=== PATIENT | female | born 1990 | race Caucasian/White ===

== ENCOUNTER → 2018-02-06 | Outpatient (REF) | payer BC, SELFPAY | LOC: LAB 11:19 | PROVIDERS: Family Provider Specialist | DX: Z13.1 Encounter for screening for diabetes mellitus (principal); Z13.220 Encounter for screening for lipoid disorders; Z71.89 Other specified counseling | CPT/HCPCS: 80061; 82947 ==

== ENCOUNTER → 2018-08-21 09:11 | Outpatient (REF) | payer BC, SELFPAY ==
[2018-08-21 09:36] LABS: Cholesterol 233 mg/dL (140-199); Glucose Promotional 95 mg/dL (70-100); HDL Cholesterol 96 mg/dL (40-60); LDL Cholesterol Calculated 103 mg/dL (<100); Triglycerides 171 mg/dL (35-150)
== END ==
LOC: LAB 09:11
PROVIDERS: Family Provider Specialist
DX: Z13.1 Encounter for screening for diabetes mellitus (principal); Z13.220 Encounter for screening for lipoid disorders
CPT/HCPCS: 80061; 82947

== ENCOUNTER → 2018-11-13 12:15 | Outpatient (REF) | payer BC, SELFPAY ==
[2018-11-13 13:27] LABS: Cholesterol 262 mg/dL (140-199); Glucose Promotional 96 mg/dL (70-100); Triglycerides 146 mg/dL (35-150)
[2018-11-13 13:38] LABS: HDL Cholesterol 118 mg/dL (40-60); LDL Cholesterol Calculated 115 mg/dL (<100)
== END ==
LOC: LAB 12:15
PROVIDERS: Family Provider Specialist
DX: Z13.1 Encounter for screening for diabetes mellitus (principal); Z13.220 Encounter for screening for lipoid disorders
CPT/HCPCS: 80061; 82947

== ENCOUNTER → 2019-10-29 17:16 | Outpatient (CLI) | payer BC, SELFPAY ==
[2019-10-29 18:03] LABS: Add Manual Diff / Slide Review NO; Basophils Absolute Auto 0 /uL (0-100); Basophils Percent Auto 0.5 % (0-2); Eosinophils Absolute Auto 100 /uL (0-450); Hematocrit 39.2 % (36-46); Hemoglobin 13.1 g/dL (12.0-16.0); Lymphocytes Absolute Auto 3300 /uL (1100-4500); Lymphocytes Percent Auto 33.1 % (25-40); Mean Corpuscular HGB Conc 33.5 % (30-36); Mean Corpuscular Hemoglobin 31.6 PG (26-34); Mean Corpuscular Volume 94.4 fL (80-100); Monocytes Absolute Auto 600 /uL (0-900); Monocytes Percent Auto 6.3 % (3-14); Neutrophils Absolute Auto 5800 /uL (1500-7000); Neutrophils Percent Auto 59.1 % (50-75); Platelet Count 286 X10^3/uL (150-400); Red Blood Cell Count 4.15 X10^6/uL (4.0-5.2); Red Cell Distribution Width 12.5 % (11.6-14.8); White Blood Cell Count 9.8 X10^3/uL (4.5-11.0)
[2019-10-29 19:11] LABS: Thyroid Stimulating Hormone 0.99 uIU/mL (0.47-4.68)
[2019-10-29 20:35] LABS: HIV 1 & 2 Ab/Ag 4th Gen Combo NEGATIVE (NEGATIVE); Hep C Virus Ab w/Reflex Quant NEGATIVE s/c (NEGATIVE)
== END ==
PROVIDERS: Visit Provider Student in an Organized Health Care Education/Training Program
DX: Z00.00 Encounter for general adult medical examination without abnormal findings (principal); R63.5 Abnormal weight gain; Z20.9 Contact with and (suspected) exposure to unspecified communicable disease
CPT/HCPCS: 36415; 82397; 83036; 84443; 85025; 86707; 86803; 87350; 87389

== ENCOUNTER → 2021-02-04 08:12 | Outpatient (CLI) | payer BC, SELFPAY ==
[2021-02-04] MEDS: COVID-19 VACC, Ad26(JANSSEN)/PF 0.5 ML IM (08:19)
== END ==
PROVIDERS: PCP Student in an Organized Health Care Education/Training Program; Visit Provider Internal Medicine
DX: Z23 Encounter for immunization (principal)
CPT/HCPCS: 0031A; 91303

== ENCOUNTER → 2023-01-13 17:01 | Outpatient (CLI) | payer BC, SELFPAY | PROVIDERS: PCP Student in an Organized Health Care Education/Training Program; Visit Provider Specialist | DX: R35.0 Frequency of micturition (principal); R39.15 Urgency of urination | CPT/HCPCS: 87109 ==

== ENCOUNTER → 2023-01-31 12:51 | Outpatient (CLI) | payer BC, SELFPAY ==
[2023-01-31 13:19] LABS: Add Manual Diff / Slide Review NO; Basophils Absolute Auto 100 /uL (0-100); Basophils Percent Auto 0.5 % (0-2); Eosinophils Absolute Auto 100 /uL (0-450); Hematocrit 40.6 % (36-46); Hemoglobin 13.4 g/dL (12.0-16.0); Lymphocytes Absolute Auto 2500 /uL (1100-4500); Lymphocytes Percent Auto 21.9 % (25-40); Mean Corpuscular HGB Conc 33.1 % (30-36); Mean Corpuscular Hemoglobin 31.2 PG (26-34); Mean Corpuscular Volume 94.1 fL (80-100); Monocytes Absolute Auto 800 /uL (0-900); Monocytes Percent Auto 7.2 % (3-14); Neutrophils Absolute Auto 7900 /uL (1500-7000); Neutrophils Percent Auto 69.4 % (50-75); Platelet Count 265 X10^3/uL (150-400); Red Blood Cell Count 4.31 X10^6/uL (4.0-5.2); White Blood Cell Count 11.4 X10^3/uL (4.5-11.0)
[2023-01-31 16:51] LABS: Appearance Urine UA CLEAR; Bilirubin Urine UA NEGATIVE (NEGATIVE); Color Urine UA YELLOW; Glucose Urine UA NEGATIVE (Negative); Ketones Urine UA NEGATIVE (NEGATIVE); Leukocyte Esterase Urine UA NEGATIVE (NEGATIVE); Nitrite Urine UA NEGATIVE (Negative); Occult Blood Urine UA NEGATIVE (Negative); Protein Urine UA NEGATIVE (Negative); Specific Gravity Urine UA <=1.005 (1.000-1.035); Urobilinogen Urine UA 0.2 E.U./dL (0.2)
[2023-02-01 07:59] LABS: Varicella IgG Antibody 693 index (Immune >165)
[2023-02-02 03:23] LABS: RPR Screen Non Reactive (Non Reactive)
[2023-02-02 16:32] LABS: HIV 1 & 2 Ab/Ag 4th Gen Combo NEGATIVE (NEGATIVE); Hep C Virus Ab w/Reflex Quant NEGATIVE s/c (NEGATIVE); Hepatitis B Surface Antigen NEGATIVE s/c (NEGATIVE); Rubella Antibody IgG 9.3 IU/mL (>15)
== END ==
PROVIDERS: PCP Registered Nurse; Referring Provider Obstetrics & Gynecology; Visit Provider Obstetrics & Gynecology
DX: Z34.01 Encounter for supervision of normal first pregnancy, first trimester (principal)
CPT/HCPCS: 36415; 80055; 81003; 86787; 86803; 86850; 86900; 86901; 87086; 87389

== ENCOUNTER → 2023-02-03 10:02 | Outpatient (CLI) | payer BC, SELFPAY ==
--- NOTE | 2023-02-03 | DI.US.S_ITS ---
PROCEDURE: US OB <= 14 WEEKS FETUS INDICATIONS: DATING AND VIABILITY OUTSIDE/PRIOR DATING DATA: Last menstrual period (LMP): December 05, 2022. LMP-based estimated date of delivery (ALFA): September 11, 2023. First dating scan (date and location): February 03, 2023 Estimated date of delivery (ALFA) from first dating scan: September 08, 2023. TECHNIQUE: Real-time scanning was performed of the fetus and maternal pelvic organs, with image documentation. Endovaginal scanning was also performed to better visualize the fetus and maternal ovaries. COMPARISON: None. FINDINGS: Embryo: Single living intrauterine gestation with estimated sonographic gestational age of approximately 9 weeks and 0 days based off crown-rump length measurement of approximately 2.3 cm. Normal yolk sac visualized. No perigestational hemorrhage identified. Heart rate: 163 beats per minute Maternal organs: Right ovary/adnexa not visualized. Unremarkable appearance of the left adnexa/ovary. Maternal cervix not well visualized. IMPRESSION: Single living intrauterine gestation with estimated sonographic gestational age of approximately 9 weeks and 0 days versus approximately 8 weeks and 4 days by last menstrual period. Estimated date of delivery by ultrasound is approximately September 08, 2023 versus September 11, 2023 by last menstrual period. Recommend routine second trimester anatomy screening survey. We strive to produce accurate, complete, and clear reports of imaging services. To assist us in improving patient care, this report was composed using standard report templates and voice recognition software. Therefore, it may contain abnormal punctuation, insertions and/or omissions. Occasional wrong-word or sound-alike substitutions may occur. Though we review the report and make efforts to correct it, we do recommend that the report be read carefully in proper context to recognize any text inaccuracies. Dictated by: Ricky Henriquez M.D. on 02/03/2023 at 12:58 Approved by: Ricky Henriquez M.D. on 02/03/2023 at 13:01
== END ==
PROVIDERS: PCP Registered Nurse; Referring Provider Obstetrics & Gynecology; Visit Provider Obstetrics & Gynecology
DX: Z36.87 Encounter for antenatal screening for uncertain dates (principal)
CPT/HCPCS: 76801; 76817

== ENCOUNTER → 2023-02-20 11:58 | Outpatient (CLI) | payer BC, SELFPAY ==
[2023-02-21 08:18] LABS: Miscellaneous to LabCorp NATERA KIT
== END ==
PROVIDERS: PCP Registered Nurse; Referring Provider Obstetrics & Gynecology; Visit Provider Obstetrics & Gynecology
DX: Z34.81 Encounter for supervision of other normal pregnancy, first trimester (principal); Z3A.11 11 weeks gestation of pregnancy
CPT/HCPCS: 36415

== ENCOUNTER → 2023-03-30 11:52 | Outpatient (CLI) | payer BC, SELFPAY ==
[2023-04-01 20:39] LABS: AFP Value 31.4 ng/mL (.); Gest Age on Col Date 16.4 weeks (.); Insulin Dep Diabetes No (.); OSBR Risk 1IN 10000 (.); Results Report (.); Test Results *Screen Negative* (.)
[2023-04-06 11:10] LABS: PDF SCANNED
== END ==
PROVIDERS: PCP Registered Nurse; Referring Provider Obstetrics & Gynecology; Visit Provider Obstetrics & Gynecology
DX: Z3A.16 16 weeks gestation of pregnancy (principal); Z34.02 Encounter for supervision of normal first pregnancy, second trimester
CPT/HCPCS: 36415; 82105

== ENCOUNTER → 2023-04-25 14:08 | Outpatient (CLI) | payer BC, SELFPAY ==
--- NOTE | 2023-04-25 14:09 | DI.US.S_ITS ---
PROCEDURE: US OB >= 14 WEEKS FETUS INDICATIONS: ANATOMY OUTSIDE/PRIOR DATING DATA: Last menstrual period (LMP): 10/04/2023. LMP-based estimated date of delivery (ALFA): 09/11/2023. First dating scan (date and location): 02/03/2023. Estimated date of delivery (ALFA) from first dating scan: 09/08/2023. TECHNIQUE: Real-time scanning was performed of the fetus, with image documentation and biometric measurements. Endovaginal scanning: No COMPARISON: None. FINDINGS: General: A single living intrauterine gestation is present. Presentation: Breech. Placenta: Placental position is anterior , without previa. Amniotic fluid index: 13.0 cm, normal range is 5-24 cm. Single deepest vertical pocket is 3.7 cm. heart rate: 144 beats per minute. Maternal cervical canal: 3.4 cm long. Normal lower limit is 2.5 cm. biometrics: Biparietal diameter: 47 mm; 20 weeks 2 days Head circumference: 186 mm; 20 weeks 6 days Abdominal circumference: 154 mm; 20 weeks 4 days Femur length: 32 mm; 20 weeks 0 days Clinically estimated gestational age: 20 weeks 1 day Composite gestational age from present scan: 20 weeks 3 days Estimated weight and percentile: 353 g, which is at the 60 second percentile for gestational age Anatomic survey: Neuro: Ventricles are non-dilated at less than 10 mm. Cisterna magna is normal at 3-11 mm. Cerebellum is normal in size and morphology. Nuchal skin fold: Normal at less than 6 mm between 14-21 weeks gestational age. Face: Nose and lips, facial profile are normal. Spine: Sacral spine is not well seen. Heart: 4-chambered heart is present, with normal ventricular outflow tracts. Diaphragm: Diaphragm is intact. Stomach: Left-sided stomach is present. Kidneys: Bilateral pelvicaliectasis is present. Normal is less than 5 mm in 2nd trimester, less than 7 mm in 3rd trimester. Cord: 3-vessel cord has orthotopic insertion. Bladder: Normal in size. Extremities: All 4 extremities identified. IMPRESSION: 1. Single living intrauterine gestation. 2. Suboptimal evaluation of the sacral spine. 3. Bilateral renal pelviectasis. 4. Appropriate interval growth. We strive to produce accurate, complete, and clear reports of imaging services. To assist us in improving patient care, this report was composed using standard report templates and voice recognition software. Therefore, it may contain abnormal punctuation, insertions and/or omissions. Occasional wrong-word or sound-alike substitutions may occur. Though we review the report and make efforts to correct it, we do recommend that the report be read carefully in proper context to recognize any text inaccuracies. Dictated by: Epi Ohara M.D. on 04/25/2023 at 16:33 Transcribed by: ELISABETH on 04/25/2023 at 16:35 Approved by: Epi Ohara M.D. on 04/25/2023 at 16:47
== END ==
PROVIDERS: PCP Registered Nurse; Referring Provider Obstetrics & Gynecology; Visit Provider Obstetrics & Gynecology
DX: Z34.02 Encounter for supervision of normal first pregnancy, second trimester (principal); Z3A.20 20 weeks gestation of pregnancy
CPT/HCPCS: 76811

== ENCOUNTER → 2023-04-28 14:34 | Outpatient (CLI) | payer BC, SELFPAY | PROVIDERS: PCP Registered Nurse; Visit Provider Obstetrics & Gynecology | DX: R35.0 Frequency of micturition (principal) | CPT/HCPCS: 87086 ==

== ENCOUNTER → 2023-05-09 11:13 | Outpatient (CLI) | payer BC, SELFPAY ==
--- NOTE | 2023-05-09 | DI.US.S_ITS ---
PROCEDURE: US OB FOLLOW UP INDICATIONS: FOLLOW UP 20 WEEK ANATOMY OUTSIDE/PRIOR DATING DATA: Last menstrual period (LMP): 12/05/2022. LMP-based estimated date of delivery (ALFA): 09/11/2023. First dating scan (date and location): 02/03/2023. Estimated date of delivery (ALFA) from first dating scan: 09/08/2023. The calculations are made using the working ALFA of 09/11/2023. TECHNIQUE: Real-time scanning was performed of the fetus, with image documentation. Endovaginal scanning: Not performed COMPARISON: [facility], OB >= 14 WEEKS FETUS, 04/25/2023, 14:16. FINDINGS: A single living intrauterine gestation is present. Presentation: Vertex. Placenta: Placental position is anterior, without previa. Amniotic fluid index: 9.7 cm, normal range is 5-24 cm. Single deepest vertical pocket is 3.1 cm. heart rate: 165 beats per minute. Maternal cervical canal: 4.6 cm long. Normal lower limit is 2.5 cm. estimated gestational age: 22 weeks 1 day sacral spine is visualized and appears within normal limits. Bilateral pelviectasis present on the prior exam has resolved, renal pelvis diameter now 3 millimeters bilaterally. IMPRESSION: 1. Single living intrauterine . 2. sacral spine visualized and within normal limits. 3. Bilateral renal pelviectasis present on the prior exam has resolved. Dictated by: Noble Lala M.D. on 05/09/2023 at 14:35 Approved by: Noble Lala M.D. on 05/09/2023 at 14:46
== END ==
PROVIDERS: PCP Registered Nurse; Referring Provider Obstetrics & Gynecology; Visit Provider Obstetrics & Gynecology
DX: Z36.2 Encounter for other antenatal screening follow-up (principal); Z3A.22 22 weeks gestation of pregnancy
CPT/HCPCS: 76816

== ENCOUNTER → 2023-05-31 09:16 | Outpatient (CLI) | payer BC, SELFPAY ==
[2023-05-31 10:59] LABS: Hematocrit 36.7 % (36-46); Hemoglobin 12.4 g/dL (12.0-16.0)
[2023-05-31 11:37] LABS: GTT (PREG) 1 Hour PP 50gm Dose 121 mg/dL (76-139)
== END ==
PROVIDERS: PCP Registered Nurse; Referring Provider Obstetrics & Gynecology; Visit Provider Obstetrics & Gynecology
DX: Z3A.26 26 weeks gestation of pregnancy (principal); Z34.02 Encounter for supervision of normal first pregnancy, second trimester
CPT/HCPCS: 36415; 82950; 85014; 85018

== ENCOUNTER → 2023-08-15 14:15 | Outpatient (CLI) | payer BC, SELFPAY ==
[2023-08-16 19:06] LABS: Strep Grp B PCR NEG for Grp B Strep
== END ==
PROVIDERS: PCP Registered Nurse; Visit Provider Obstetrics & Gynecology
DX: Z34.03 Encounter for supervision of normal first pregnancy, third trimester (principal); Z3A.36 36 weeks gestation of pregnancy
CPT/HCPCS: 87653

== ENCOUNTER 2023-09-07 14:38 | Observation (INO) | payer BC, SELFPAY | END 2023-09-07 15:40 | disposition home or self-care (01) | PROVIDERS: Admitting Provider Obstetrics & Gynecology; PCP Registered Nurse; Referring Provider Obstetrics & Gynecology; Visit Provider Obstetrics & Gynecology | DX: O47.1 False labor at or after 37 completed weeks of gestation (principal); Z3A.39 39 weeks gestation of pregnancy | CPT/HCPCS: 59025; G0378; G0379 ==

== ENCOUNTER 2023-09-07 18:29 | Inpatient (IN) | payer BC, SELFPAY ==
--- NOTE | 2023-09-07 18:56 | PM.OBHP.IH.1 ---
OB HPI Date/Time Date of admission: 09/07/23 Date Patient Seen: 09/07/23 Time Patient Seen: 18:56 History of Present Condition Chief complaint: labor ALFA Calculator Estimated Delivery Date Method Current WG Current Estimate 09/11/23 LMP (Certain) 39w 3d Other Estimates 09/08/23 Ultrasound #1 39w 6d Estimated Gestational Age (weeks): 39.3 : 1 Narrative: 33YO @ [id number] by LMP concordant with 9wk US presents for evaluation of active labor. Has been breathing through strong contractions since midday. Was evaluated in triage earlier today and found to be 2-3 cm dilated and discharge to home. Has continued to contract painfully. No vaginal bleeding or leaking of fluid. No headache, scotoma or RUQ pain. She is planning to have a low intervention and request an epidural only when the pain is too much. Partner Alen is present and supportive. care: good care, initiated at week # (9), number of visits (12) and pounds weight gain (28) Dating criteria OB: LMP confirmed by 1st trimester US Ultrasounds: normal mid trimester US Obstetrical complications: none Medical complications OB: none Preadmission Labs Last OB Lab Results: Blood Type A Positive 01/31/23 12:55 Antibody Screen Negative 01/31/23 12:55 Hematocrit 36.7 % (36-46) 05/31/23 09:21 Hemoglobin 12.4 g/dL (12.0-16.0) 05/31/23 09:21 Hepatitis B Surface Antigen Negative s/c (NEGATIVE) 01/31/23 12:55 Hepatitis C Antibody Negative s/c (NEGATIVE) 01/31/23 12:55 Rubella Antibody 9.3 IU/mL (>15) L 01/31/23 12:55 Varicella-Zoster IgG Antibody 693 index (Immune >165) 01/31/23 12:55 Glucose 1 Hour 121 mg/dL (76-139) 05/31/23 09:21 Group B Streptococcus (PCR) Neg for grp b strep 08/15/23 14:15 Evaluation Evaluation Baseline heart rate: 145 Variability: Moderate (11-25) monitor accelerations: Present Monitor Decelerations: Absent Contraction Frequency (minutes): 2 Uterine Contraction Intensity: Moderate Status: Category l Dilation (cm): 4 Effacement (%): 100 station: -1 Comments: CE by RN in triage [facility] Medical History Acne Menstrual migraine Surgical History History of tonsillectomy History of third molar tooth extraction Family History Grandmother Age: 83 Breast cancer Family/Other Breast cancer Mother Hypothyroidism Fibromyalgia Father Hyperlipidemia Family/Other Schizophrenia Social History marital status: unmarried,single number of children: 0 lives independently: Yes caregiver/support person: No housing: house pets and animals: Yes (chickens, dog) education level: college (amanda's degree) occupational status: employed (real estate broker associate, works from home) current occupational exposures/hazards: No special roslyn needs: No travel history: recent ([place] 08/2022) seatbelt use: always helmet use: Yes water heater temp set < 120 deg: Yes working smoke detector in home: Yes fire extinguisher in home: Yes carbon monox detector in home: Yes firearms in home: No do you feel safe at home: Yes Smoking Status: Never smoker second hand exposure: No alcohol intake: former (2-6/week when not ) substance use type: does not use during the past year weight has: increased > 10 lbs well-balanced diet: about half the time daily servings fruits/ve-4 caffeine: No Type(s) of exercise: walking and bicycling frequency: 3-4 times per week Meds Home Medications and Allergies Home Medications Medication Instructions Recorded Confirmed Type aloe vera 25 mg capsule 25 mg PO DAILY 01/20/23 09/05/23 History magnesium oxide 400 mg PO DAILY 01/20/23 09/05/23 History prenat.vits,chioma,[id number] 1 tab PO DAILY 01/20/23 09/05/23 History Allergies Allergy/AdvReac Type Severity Reaction Status Date / Time minocycline [MINOCYCLINE] Allergy Severe Swelling Verified 09/05/23 14:31 of Lip/Tongue/Throat Review of Systems Review of Systems ROS: Yes All systems reviewed with the patient and are negative except as otherwise documented OB Exam Vital signs Blood Pressure: 140/84 Pulse Rate: 75 Temperature: 97.3 F Resp Effort & Inspection: normal respiratory effort and able to speak in complete sentences Auscultation: clear to auscultation bilaterally Cardio Rate: regular rate Rhythm: regular rhythm Presentation: vertex Assessment and Plan Assessment and Plan Assessment and Plan narrative: A: Term nullipara Active labor No indication for GBS prophylaxis Rubella NONimmune Elevate BP without dx of HTN Cat I FHR P: Admit, routine orders with a preeclampsia panel. May switch to intermittent auscultation. Epidural when requested. Reassess in 4 hours or sooner, PRN. CNM to cover for until 0700.
[2023-09-07 20:01] VITALS: BP 140/84; PULSE 75; TEMP 36.3
[2023-09-07 20:01] LABS: Hematocrit 36.2 % (36-46); Hemoglobin 12.5 g/dL (12.0-16.0); Mean Corpuscular HGB Conc 34.6 % (30-36); Mean Corpuscular Volume 92.4 fL (80-100); Platelet Count 201 X10^3/uL (150-400); Red Blood Cell Count 3.92 X10^6/uL (4.0-5.2); Red Cell Distribution Width 13.5 % (11.6-14.8); White Blood Cell Count 20.2 X10^3/uL (4.5-11.0)
[2023-09-07 20:04] VITALS: BP 122/66
[2023-09-07 20:07] LABS: Add Manual Diff / Slide Review YES
[2023-09-07 20:13] LABS: Aspartate Aminotransferase 31 IU/L (14-36); Blood Urea Nitrogen 12 mg/dL (7-17); Estimated Glomerular Filt Rate > 60 mL/min (>60); Uric Acid 6.6 mg/dL (2.5-6.2)
[2023-09-07 20:53] LABS: Neutrophils Absolute Manual 18988 /uL (3000-5900); Platelet Estimate Adequate on smear; RBC Morphology Normal Morphology; Total Cells Counted 100
[2023-09-07] MEDS: LACTATED RINGERS 1,000 ML 100 ML IV (21:17)
[2023-09-07 21:26] LABS: Creatinine Urine Random 198.6 mg/dL; Protein (Total) Urine Random 10 mg/dL (0-12); Protein Creatinine Ratio Urine 0.05 GRAM/24H
--- NOTE | 2023-09-07 22:19 | P.PCN_ITS ---
Regional Block Pre-procedure Procedure: Continuous Lumbar Epidural for L&D Attending OB provider: Zee Posada PMH/ROS narrative: full-term in labor requesting epidural. BMI 32, occ GERD sx. See Pre- anesthesia evaluation for further details. ASA Class: II Labs: Hct 36.2 % (36-46) 09/07/23 19:35 Hct Cancelled 09/07/23 19:35 Plt Count 201 X10^3/uL (150-400) 09/07/23 19:35 Plt Count Cancelled 09/07/23 19:35 Medications: Current Medications Generic Name Dose Route Start Last Admin Trade Name Freq PRN Reason Stop Dose Admin Calcium Carbonate 1,000 mg 09/07/23 18:54 Calcium Carbonate 500 Mg Tab PO Q4HR PRN Dyspepsia Carboprost Tromethamine 250 mcg 09/07/23 18:54 Carboprost 250 Mcg/Ml Ampul IM Q90M PRN Bleeding Fentanyl 100 mcg 09/07/23 18:54 Fentanyl 100 Mcg/2 Ml Inj IV Q1H PRN Pain, Severe (7-10) Oxytocin/Lactated Ringer's 30 unit in 500 mls @ 200 mls/hr 09/07/23 18:54 Oxytocin Premix IV CONT PRN Bleeding Protocol Tranexamic Acid 1,000 mg/ 100 mls @ 200 mls/hr 09/07/23 18:54 Sodium Chloride IV NOW PRN Bleeding Lactated Ringer's 1,000 mls @ 100 mls/hr 09/07/23 19:00 09/07/23 21:17 Lactated Ringers IV 100 mls/hr CONT JAGUAR Administration Lidocaine HCl 20 ml 09/07/23 18:54 Lidocaine 1% 20 Ml INJ INTRA-OP PRN Post Delivery Methylergonovine Maleate 0.2 mg 09/07/23 18:54 Methylergonovine 0.2 Mg Tablet PO Q6HR PRN Heavy Bleeding Methylergonovine Maleate 0.2 mg 09/07/23 18:54 Methylergonovine 0.2 Mg/Ml Vial IM NOW PRN Bleeding Misoprostol 800 mcg 09/07/23 18:54 Misoprostol 200 Mcg Tablet DE NOW PRN Bleeding Misoprostol 400 mcg 09/07/23 18:54 Misoprostol 200 Mcg Tablet SL NOW PRN Bleeding Naloxone HCl 0.2 mg 09/07/23 18:54 Naloxone 0.4 Mg/Ml Vial IV Q2MIN PRN Opiate Reversal Ondansetron HCl 4 mg 09/07/23 18:54 Ondansetron 4 Mg/2 Ml Inj IV Q4HR PRN Nausea And Vomiting Oxytocin 10 unit 09/07/23 18:54 Oxytocin 10 Unit/Ml Vial IM NOW PRN Bleeding Allergies: Allergies Allergy/AdvReac Type Severity Reaction Status Date / Time minocycline [MINOCYCLINE] Allergy Severe Swelling Verified 09/05/23 14:31 of Lip/Tongue/Throat Procedure Insertion date: 09/07/23 Insertion time: 21:47 Prep/Local: 1% lidocaine Interspace: L4-5 Patient position: sitting Needle: 18 gauge Hustead Loss of resistance with: saline JAYLENE at (cm): 5 Catheter placed at SKIN (cm): 12 Catheter in SPACE (cm): 7 Insertion: No CSF, No Blood, No Paresthesia with insertion, No Paresthesia with injection and No Test dose reaction Initial Medications TEST DOSE time: 21:48 BOLUS DOSE time: 21:49 BOLUS DOSE (mL): 6 BOLUS DOSE med: other Infusion INFUSION: 0.125% bupivacaine and with fentanyl 2 mcg/mL Initial rate (mL/hr): 10 Subsequent interventions: Initial bolus with 1.5% lido with epi. Infusion is 0.1% bupiv with fentanyl. Pt tolerated procedure well. Epidural infusion started 22:07. Pt reports 0/10 pain with labor. F/U after delivery: Epidural worked well; pt only pushed PCEA button x1. Post-procedure Anesthesia time START: 21:38 Anesthesia time END: 04:58 Post-procedure Anesthesia Assessment: Yes CV function: HR/BP stable, Yes Resp function: RR/sat/airway adequate, Yes Post-op hydration adequate, Yes Pain control adequate, Yes Nausea & vomiting absent, Yes Temperature > 36 C and Yes Mental status appropriate
--- NOTE | 2023-09-08 05:15 | PM.OBPRVD ---
Labor & Delivery Delivery date: 09/08/23 Intrapartal Events: None Cervical ripening method: none Induction method: none Delivery monitor: external FHT and external uterine Route of delivery: L&D Laceration Description: Perineal - 1st Degree Anesthesia Type: Epidural Narrative: SROM for clear fluid at 0125. Cat I FHR throughout 1st stage. Routine exam found patient to be C/C/+1. Strong maternal efforts led to steady descent of the vertex for a 38 minute second stage with Cat II FHR throughout. NSVB of a vigorous baby girl in [place] with restitution to [place]. There was a compound left hand with cord around left wrist, manually reduced. There was no nuchal cord and the shoulders delivered easily. was placed on maternal abdomen for drying and skin to skin. 30 units of pitocin in 500mL LR was started at 250mL/hr for active management of the third stage of labor. After cessation of pulsation, the cord was double clamped by CNM and cut by FOB. Cord blood sample was collected to hold. Gentle cord traction and a single maternal push led to spontaneous, Schultze delivery of an apparently intact placenta, membranes and 3VC. Fundus immediately firm and bleeding scant. Inspection revealed a short 1st degree vaginal laceration that was hemostatic and well approximated with no indication for repair. QBL 50mL. Both mother and baby stable and skin to skin as I left the room. [place] Baby 1: Infant gender: Female Presentation: vertex Position: Left Occiput Anterior Placenta delivery description: Spontaneous score (1 min): 8 score (5 min): 9 weight: 3.613 kg Plan for aftercare: Routine care
[2023-09-08] MEDS: KETOROLAC 30 MG/ML VIAL IV (06:09)
[2023-09-08] MEDS: OXYTOCIN PREMIX 30 UNIT/500 ML PLAST..BAG 200 UNIT IV (06:10)
[2023-09-08 12:22] LABS: Add Manual Diff / Slide Review YES; Hematocrit 32.4 % (36-46); Hemoglobin 11.1 g/dL (12.0-16.0); Mean Corpuscular HGB Conc 34.3 % (30-36); Mean Corpuscular Hemoglobin 32.1 PG (26-34); Mean Corpuscular Volume 93.7 fL (80-100); Platelet Count 173 X10^3/uL (150-400); Red Blood Cell Count 3.46 X10^6/uL (4.0-5.2); Red Cell Distribution Width 13.1 % (11.6-14.8); White Blood Cell Count 18.2 X10^3/uL (4.5-11.0)
[2023-09-08 12:42] LABS: Neutrophils Absolute Manual 14378 /uL (3000-5900); RBC Morphology Normal Morphology; Total Cells Counted 100
[2023-09-08] MEDS: IBUPROFEN 600 MG TABLET PO ×2 (13:02→20:01)
[2023-09-08] MEDS: ACETAMINOPHEN 325 MG TABLET 650 MG PO ×2 (13:03→20:01)
[2023-09-09] MEDS: ACETAMINOPHEN 325 MG TABLET 650 MG PO (05:31)
[2023-09-09] MEDS: IBUPROFEN 600 MG TABLET PO (05:32)
[2023-09-09] MEDS: PRENATAL VIT,CALC/IRON/FOLIC 1 TABLET 1 TAB PO (08:08)
--- NOTE | 2023-09-09 09:42 | P.PNOB_ITS ---
Subjective - OB Subjective Patient comments: no complaints and pain well controlled (01/06.) baby status: doing well feeding status: exclusively breast feeding Narrative: Patent patient relates that she is doing well. Date Patient Seen: 09/09/23 Time Patient Seen: 09:43 Exam Const General: cooperative Orientation: alert, awake and oriented x3 GI Inspection: normal to inspection Palpation: soft and mass (Uterine is 3 fingerbreadths below the umbilicus.) Extrem General: no calf tenderness Objective Labs 09/08/23 11:58 09/07/23 19:35 Labs: Laboratory Results - last 24 hr 09/08/23 11:58 WBC 18.2 H RBC 3.46 L Hgb 11.1 L Hct 32.4 L MCV 93.7 MCH 32.1 MCHC 34.3 RDW 13.1 Plt Count 173 Neut % (Auto) Not Reportable Lymph % (Auto) Not Reportable [place] % (Auto) Not Reportable Eos % (Auto) Not Reportable Baso % (Auto) Not Reportable Lymph # (Auto) Not Reportable [place] # (Auto) Not Reportable Baso # (Auto) Not Reportable Total Counted 100 Seg Neutrophils % 79.0 H Lymphocytes % (Manual) 15.0 L Monocytes % (Manual) 6.0 Neutrophils # (Manual) 20630 H Platelet Estimate RBC Morphology Normal morphology Assessment & Plan Plan day: 1 plan OB: routine care Comments: Reviewed , contraception, mastitis, and fevers. Also discussed need to postpone childbearing for a year. As well as signs and symptoms of infection. Reviewed pelvic rest. Time Spent With Patient Time: Total time spent is greater than 50% in coordination of care (as documented) at patient's floor/unit and/or counseling patient: Time with patient: 15-24 minutes
[2023-09-09 10:07] VITALS: BP 122/66; PULSE 75; TEMP 36.3
[2023-09-09] MEDS: MEASLES,MUMPS,RUBELLA VACC/PF 0.5 ML VIAL SUBCUT (10:17)
== END 2023-09-09 10:40 | disposition home or self-care (01) | DRG 806 ==
PROVIDERS: Admitting Provider Nurse Practitioner Obstetrics & Gynecology; PCP Registered Nurse; Referring Provider Nurse Practitioner Obstetrics & Gynecology; Visit Provider Nurse Practitioner Obstetrics & Gynecology
DX: O42.02 Full-term premature rupture of membranes, onset of labor within 24 hours of rupture (principal); O47.1 False labor at or after 37 completed weeks of gestation; Z37.0 Single live birth; O76 Abnormality in fetal heart rate and rhythm complicating labor and delivery; Z3A.39 39 weeks gestation of pregnancy
CPT/HCPCS: 36415; 59025; 59050; 82570; 84156; 84450; 84550; 85007; 85025; 86850; 86900; 86901; G0378; G0379; J1885; J2590

== ENCOUNTER → 2024-05-30 09:48 | Outpatient (CLI) | payer BC, SELFPAY ==
[2024-05-30 10:21] LABS: Hematocrit 40.7 % (36-46); Hemoglobin 13.7 g/dL (12.0-16.0); Mean Corpuscular HGB Conc 33.7 % (30-36); Mean Corpuscular Hemoglobin 31.9 PG (26-34); Mean Corpuscular Volume 94.6 fL (80-100); Platelet Count 218 X10^3/uL (150-400); White Blood Cell Count 7.1 X10^3/uL (4.5-11.0)
[2024-05-30 11:03] LABS: Alanine Aminotransferase 12 IU/L (<35); Albumin 4.9 g/dL (3.5-5.0); Albumin Globulin Ratio 1.9 (1.0-2.8); Alkaline Phosphatase 97 U/L (38-126); Aspartate Aminotransferase 19 IU/L (14-36); BUN Creatinine Ratio 20.3 (6-22); Bilirubin Total 0.7 mg/dL (0.2-1.3); Blood Urea Nitrogen 15 mg/dL (7-17); Calcium 9.8 mg/dL (8.4-10.2); Carbon Dioxide 24 mmol/L (22-32); Chloride 106 mmol/L (98-107); Cholesterol 215 mg/dL (140-199); Estimated Glomerular Filt Rate > 60 mL/min (>60); Globulin 2.6 g/dL (1.7-4.1); Glucose 94 mg/dL (70-100); HDL Cholesterol 84 mg/dL (40-60); HEMOLYSIS < 15 (0-50); LDL Cholesterol Calculated 117 mg/dL (<100); Potassium 4.2 mmol/L (3.4-5.1); Sodium 139 mmol/L (137-145); Total Protein 7.5 g/dL (6.3-8.2); Triglycerides 68 mg/dL (35-150)
[2024-05-30 11:08] LABS: Vitamin D 25 Hydroxy (D3) 35.9 ng/mL (30.0-100.0)
[2024-05-30 11:20] LABS: TSH w/ Reflex to FT4 0.92 uIU/mL (0.47-4.68)
[2024-05-30 11:55] LABS: Folate 13.4 ng/mL (2.76-20.0); Vitamin B12 700 pg/mL (239-931)
[2024-06-02 00:13] LABS: Calcium 9.7 mg/dL (8.7-10.2); Parathyroid Hormone, Intact 34 pg/mL (15-65)
== END ==
PROVIDERS: Family Provider Registered Nurse; PCP Registered Nurse Diabetes Educator; Referring Provider Registered Nurse Diabetes Educator; Visit Provider Registered Nurse Diabetes Educator
DX: R39.15 Urgency of urination (principal); R35.0 Frequency of micturition; E78.5 Hyperlipidemia, unspecified
CPT/HCPCS: 36415; 80053; 80061; 82306; 82310; 82607; 82746; 83970; 84443; 85027

== ENCOUNTER → 2024-09-03 11:00 | Outpatient (CLI) | payer BC, SELFPAY ==
[2024-09-05 13:36] LABS: Candida species Negative (Negative); Gardnerella vaginalis Negative (Negative); Trichomoas vaginalis Negative (Negative)
== END ==
PROVIDERS: Family Provider Registered Nurse; PCP Registered Nurse Diabetes Educator; Visit Provider Student in an Organized Health Care Education/Training Program
DX: N89.8 Other specified noninflammatory disorders of vagina (principal)
CPT/HCPCS: 87480; 87510; 87660

== ENCOUNTER → 2024-11-28 14:39 | Outpatient (RCR) | payer BC, SELFPAY ==
--- NOTE | 2023-11-15 16:37 | PT.OIE ---
Current Diagnoses Other specified disorders of muscle (11/15/23) Urgency of urination (11/15/23) Chronic bladder pain (11/15/23) Encounter for supervision of normal , unspecified, unspecified trimester (11/15/23) Past Medical History (Last Reviewed 09/07/23 @ 18:57 by Zee Posada CNM) Acne Menstrual migraine Past Surgical History (Last Reviewed 09/07/23 @ 18:57 by Zee Posada CNM) History of third molar tooth extraction History of tonsillectomy Visit Care Team Role Provider Type ROXANNE Neil Family Provider Non-Staff Primary Care Provider Specialty: Family Practice Address: [facility] [facility], [address], [place], [address] Email: Jakub Schaffer MD Attending Provider Physician Referring Provider Specialty: JAVA WEB APPLICATION DEVELOPER Address: [address] [place] [address], [address], [place], [address] Email: [email or web address] Physical Therapy Initial Evaluation PT-OP-A Visit Information Start: 11/15/23 09:50 Freq: Status: Active Protocol: Document 11/15/23 09:45 [facility] (Rec: 11/15/23 10:11 [facility] [id number]) Out-Patient Physical Therapy Visit Information Visit Information Visit Type Initial Evaluation Visit Start Time 09:45 Visit Stop Time 10:30 Total Visit Minutes 45 Visit Number 1 Evaluation Information Evaluation Date 11/15/23 PT-OP-B Current Condition Start: 11/15/23 09:50 Freq: Status: Active Protocol: Document 11/15/23 09:45 [facility] (Rec: 11/15/23 10:11 [facility] [id number]) Current Condition History of Current Condition Onset Date Aug 2022 Current Complaints frequent urination and urgency History of Current Condition pt notes she has a history of frequency of urination, 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 Since then she had a baby and she experienced urgency off and on with . She feels like she has to pee all the time. She did try bladder training so she is able to wait 3 hours between Worse at night and she wakes 3-4 times per night. She does retain a bit of urine 100 cc. Pt notes she is having more constipation and she notes her bladder will spasm right afterward. She has one every other day. She drinks plenty of water. no leakage issues. She does feel hemrhoids off and on. PT-OP-C Subjective Start: 11/15/23 09:50 Freq: Status: Active Protocol: Document 11/15/23 09:45 [facility] (Rec: 11/21/23 11:50 [facility] [id number]) Patient Questionnaires Pelvic Pain and Urgency/Frequency Patient Symptom Scale Pelvic Pain Score 21 PT-OP-F Manual Assessment Start: 11/15/23 09:50 Freq: Status: Active Protocol: Document 11/15/23 09:45 [facility] (Rec: 11/15/23 11:56 [facility] [id number]) Manual Assessments Soft Tissue Assessment Soft Tissue Mobility Assessment suprapubic fascia is guarded and tight, tightness over the bladder , left side of the abdominal wall fascial tightness Left sided adductor guarding and tightness at the insertion to the pubic bone Other Manual Assessments Other Manual Assessments in supine the left leg is longer than the right leg, Elana notes she feels this is the way her legs have been since PT-OP-I Pelvic Floor Start: 11/21/23 11:54 Freq: Status: Active Protocol: Document 11/15/23 09:45 [facility] (Rec: 11/21/23 12:01 [facility] [id number]) Pelvic Floor Assessment Urine Pelvic Floor Surgery No Urinary Symptoms Urge Sensation Other Urinary Symptoms pt notes she feels as if her bladder is always full and that she always needs to void Other Leakage Causes no c/o leakage but exercises increases symptoms of urgency and bladder irritation Voiding Frequency pt uses urge technqiue and waits until apprx every 3 hours Nocturia 4 Pelvic Clock Pelvic Clock 3-6 Tenderness Pelvic Clock 6-9 Tenderness Pelvic Clock Other pt has tenderness along the lateral campos of the levator ani bilaterally, she is able to relax after contraction but there is tissue irritation and the external pelvic tissue does appear red and irritated Contraction Ability Voluntary Contraction Moderate Manual Muscle Testing Left 4 Manual Muscle Testing Right 4 Manual Muscle Testing Anterior 4 Manual Muscle Testing Posterior 4 PT-OP-J Posture/Palpation/Skin Start: 11/15/23 09:50 Freq: Status: Active Protocol: Document 11/15/23 09:45 [facility] (Rec: 11/21/23 16:36 [facility] [id number]) Palpation Assessment Location descending colon Palpation Findings Soft Tissue Tightness,Muscle Guarding,Tenderness suprapubic fascia Palpation Findings Soft Tissue Tightness,Spasm, Muscle Guarding,Tenderness PT-OP-Q Treatments Start: 11/15/23 09:50 Freq: Status: Active Protocol: Document 11/15/23 09:45 [facility] (Rec: 11/15/23 11:56 [facility] [id number]) Therapeutic Exercises Supine Exercises happy baby Reps/Minutes hold 1-2 min supine modified squat stretch Reps/Minutes hold 1-2 min Other Exercises prone on elbows Reps/Minutes hold 30sec to 1 min to stretch the suprapubic fascia PT-OP-T Assessment and Plan Start: 11/15/23 09:50 Freq: Status: Active Protocol: Document 11/15/23 09:45 [facility] (Rec: 11/15/23 12:08 [facility] [id number]) Physical Therapy Assessment Rehab Potential Rehabilitation Potential Excellent Evaluation Complexity Number of Personal Factors/Comorbidities 0 Number of Body Systems Impaired 1-2 Clinical Presentation at Evaluation Stable Impairments Impairments Activity Tolerance,Pain,Soft Tissue Mobility,Tone Other Impairments constant urinary urgency and bladder irritation Goals 3 Impairment Pt is unable to engage in activites such as running as it causes bladder pain Usp Goal (LTG) Elana reports she is able to return to exercise activities without increased c/o bladder pain LTG Duration 12 weeks Two Impairment Tightness of the suprapubic fascia and left abdominal wall tightness along the descending colon which can contribute to bladder irritation with tenderness to palpation Short Term Goal (STG) Elana is shown self abdominal massage to start working on the fascia at home Usp Goal (LTG) With manual therapy techniques and self massage there is improved mobility of the suprapubic and abdominal fascia along the left side of the abdomen and Elana no longer has tenderness to palpation One Impairment urinary urgency and bladder irritation along with nocturia Skoog Operator Goal (LTG) Elana reports a overall reduction in urinary urgency and is able to sleep through the night without having to wake to void LTG Duration 12 weeks Assessment Summary Assessment Elana is a 33 year old female who presents to PT today with chief complaints of bladder irritation and urgency to void . She notes her symptoms began after a trip to [place] in 2021 with what she felt was a UTI. She has been treated for a UTI and since that time she has experienced bladder irritation and a feeling that she always needs to void. She has had to stop activities such as running due to irritation at her bladder. She has tried previous PT and is working on bladder retraining but continued to experience the bladder irritation as well as nocturia 3-4 times per night. She also reports her bowels have been different since the infection and now she will experience constipation. She notes she has a bowel movement every other day. She reprots increased bladder spasm with bowel movements. With exam today Elana presents with guarding and fascial restrictions in the suprapubic fascia and over the bladder as well as the left side of her abdomen and into the descending colon. There is guarding and fascial restrictions on the left adductor tendon attachments to the pubic bone. With pelvic floor exam she is able to contract all campos of the levator ani and tests strong. There is tenderness to palpation on B lateral campos of the levator ani and Elana has tightness of the ileococcygeus muscles B. She is able to relax with tactile and manual cues. The tissue of the vaginal wall is red and she notes tissue irritation. She may benefit from talking to her doctor about a vaginal estrogen cream to help decrease tissue irritation. I started Elana today with stretches to relax the lower abdomen and pelvic floor and she tolerated these well. She is a good candidate for MFR techniques over the lower abdominal wall and visceral mobilization of the bladder. Physical Therapy Plan Frequency and Duration Frequency of Treatment 1x/Week Duration of treatment (weeks) 12 Plan of Care Start Date 11/15/23 Plan of Care End Date 02/07/24 Therapeutic Interventions Therapeutic Interventions Home Exercise Program,Manual Therapy,Neuromuscular Re- education,Self-Care/Home Management,Soft Tissue Mobilization,Therapeutic Exercises Modalities Biofeedback Next Visit Focus/Plan Next Note Type Treatment Note Next Visit Plan Begin MFR for the suprapubic fascia and visceral mobilizations of the bladder next visit, review stretches for the pelvic floor and try supine over the ball to stretch the suprapubic fascia
--- NOTE | 2023-11-15 16:38 | PT.OPPOC ---
Physical, Occupational & Speech Therapy At [facility] Current Diagnoses Other specified disorders of muscle (11/15/23) Urgency of urination (11/15/23) Chronic bladder pain (11/15/23) Encounter for supervision of normal , unspecified, unspecified trimester (11/15/23) Visit Care Team Role Provider Type ROXANNE Neil Family Provider Non-Staff Primary Care Provider Specialty: Family Practice Address: [address], [address], [place], [address] Email: Jakub Schaffer MD Attending Provider Physician Referring Provider Specialty: MASSAGE OPERATOR Address: [address] [place] [address], [address], [place], [address] Email: [email or web address] Plan Of Care PT-OP-T Assessment and Plan Start: 11/15/23 09:50 Freq: Status: Active Protocol: Document 11/15/23 09:45 [facility] (Rec: 11/15/23 12:08 [facility] [id number]) Physical Therapy Assessment Rehab Potential Rehabilitation Potential Excellent Evaluation Complexity Number of Personal Factors/Comorbidities 0 Number of Body Systems Impaired 1-2 Clinical Presentation at Evaluation Stable Impairments Impairments Activity Tolerance,Pain,Soft Tissue Mobility,Tone Other Impairments constant urinary urgency and bladder irritation Goals 3 Impairment Pt is unable to engage in activities such as running as it causes bladder pain Prison Goal (LTG) Elana reports she is able to return to exercise activities without increased c/o bladder pain LTG Duration 12 weeks Two Impairment Tightness of the suprapubic fascia and left abdominal wall tightness along the descending colon which can contribute to bladder irritation with tenderness to palpation Short Term Goal (STG) Elana is shown self abdominal massage to start working on the fascia at home Prison Goal (LTG) With manual therapy techniques and self massage there is improved mobility of the suprapubic and abdominal fascia along the left side of the abdomen and Elana no longer has tenderness to palpation One Impairment urinary urgency and bladder irritation along with nocturia Prison Goal (LTG) Elana reports a overall reduction in urinary urgency and is able to sleep through the night without having to wake to void LTG Duration 12 weeks Assessment Summary Assessment Elana is a 33 year old female who presents to PT today with chief complaints of bladder irritation and urgency to void . She notes her symptoms began after a trip to [place] in 2021 with what she felt was a UTI. She has been treated for a UTI and since that time she has experienced bladder irritation and a feeling that she always needs to void. She has had to stop activities such as running due to irritation at her bladder. She has tried previous PT and is working on bladder retraining but continued to experience the bladder irritation as well as nocturia 3-4 times per night. She also reports her bowels have been different since the infection and now she will experience constipation. She notes she has a bowel movement every other day. She reports increased bladder spasm with bowel movements. With exam today Elana presents with guarding and fascial restrictions in the supra pubic fascia and over the bladder as well as the left side of her abdomen and into the descending colon. There is guarding and fascial restrictions on the left adductor tendon attachments to the pubic bone. With pelvic floor exam she is able to contract all campos of the levator ani and tests strong. There is tenderness to palpation on B lateral campos of the levator ani and Elana has tightness of the ileococcygeus muscles B. She is able to relax with tactile and manual cues. The tissue of the vaginal wall is red and she notes tissue irritation. She may benefit from talking to her doctor about a vaginal estrogen cream to help decrease tissue irritation. I started Elana today with stretches to relax the lower abdomen and pelvic floor and she tolerated these well. She is a good candidate for MFR techniques over the lower abdominal wall and visceral mobilization of the bladder. Physical Therapy Plan Frequency and Duration Frequency of Treatment 1x/Week Duration of treatment (weeks) 12 Plan of Care Start Date 11/15/23 Plan of Care End Date 02/07/24 Therapeutic Interventions Therapeutic Interventions Home Exercise Program,Manual Therapy,Neuromuscular Re- education,Self-Care/Home Management,Soft Tissue Mobilization,Therapeutic Exercises Modalities Biofeedback Next Visit Focus/Plan Next Note Type Treatment Note Next Visit Plan Begin MFR for the suprapubic fascia and visceral mobilizations of the bladder next visit, review stretches for the pelvic floor and try supine over the ball to stretch the suprapubic fascia Plan of Care Dates Plan of Care Start Date 11/15/23 Plan of Care End Date 02/07/24 Electronically Signed by: Susanna Mohan, PT 11/21/23 1638 If you are in agreement with this Plan of Care, please return a signed and dated copy. I have reviewed this Plan of Care and certify that the skilled therapy services above are required to meet the patient?s needs. Physician Signature Date Printed Name and Credentials Clinical Instructor Signature Printed Name and Credentials
--- NOTE | 2023-11-22 16:25 | PT.OTN ---
Current Diagnoses Other specified disorders of muscle (11/22/23) Urgency of urination (11/22/23) Chronic bladder pain (11/22/23) Encounter for supervision of normal , unspecified, unspecified trimester (11/22/23) Physical Therapy Treatment Note PT-OP-A Visit Information Start: 11/15/23 09:50 Freq: Status: Active Protocol: Document 11/22/23 09:45 [facility] (Rec: 11/22/23 12:47 [facility] [id number]) Out-Patient Physical Therapy Visit Information Visit Information Visit Type Treatment Note Visit Start Time 09:45 Visit Stop Time 10:30 Visit Number 45 PT-OP-B Current Condition Start: 11/15/23 09:50 Freq: Status: Active Protocol: Document 11/15/23 09:45 [facility] (Rec: 11/15/23 10:11 [facility] [id number]) Current Condition History of Current Condition Onset Date Aug 2022 Current Complaints frequent urination and urgency History of Current Condition pt notes she has a history of frequency of urination, 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 Since then she had a baby and she experienced urgency off and on with . She feels like she has to pee all the time. She did try bladder training so she is able to wait 3 hours between Worse at night and she wakes 3-4 times per night. She does retain a bit of urine 100 cc. Pt notes she is having more constipation and she notes her bladder will spasm right afterward. She has one every other day. She drinks plenty of water. no leakage issues. She does feel hemrhoids off and on. PT-OP-C Subjective Start: 11/15/23 09:50 Freq: Status: Active Protocol: Document 11/22/23 09:45 [facility] (Rec: 11/22/23 12:47 [facility] [id number]) OP-PT Subjective Patient Comments Patient Comments Elana notes no change in symptoms from after initial evaluation PT-OP-F Manual Assessment Start: 11/15/23 09:50 Freq: Status: Active Protocol: Document 11/15/23 09:45 [facility] (Rec: 11/15/23 11:56 [facility] [id number]) Manual Assessments Soft Tissue Assessment Soft Tissue Mobility Assessment suprapubic fascia is guarded and tight, tightness over the bladder , left side of the abdominal wall fascial tightness Left sided adductor guarding and tightness at the insertion to the pubic bone Other Manual Assessments Other Manual Assessments in supine the left leg is longer than the right leg, Elana notes she feels this is the way her legs have been since PT-OP-I Pelvic Floor Start: 11/21/23 11:54 Freq: Status: Active Protocol: Document 11/15/23 09:45 [facility] (Rec: 11/21/23 12:01 [facility] [id number]) Pelvic Floor Assessment Urine Pelvic Floor Surgery No Urinary Symptoms Urge Sensation Other Urinary Symptoms pt notes she feels as if her bladder is always full and that she always needs to void Other Leakage Causes no c/o leakage but exercises increases symptoms of urgency and bladder irritation Voiding Frequency pt uses urge technqiue and waits until apprx every 3 hours Nocturia 4 Pelvic Clock Pelvic Clock 3-6 Tenderness Pelvic Clock 6-9 Tenderness Pelvic Clock Other pt has tenderness along the lateral campos of the levator ani bilaterally, she is able to relax after contraction but there is tissue irritation and the external pelvic tissue does appear red and irritated Contraction Ability Voluntary Contraction Moderate Manual Muscle Testing Left 4 Manual Muscle Testing Right 4 Manual Muscle Testing Anterior 4 Manual Muscle Testing Posterior 4 PT-OP-J Posture/Palpation/Skin Start: 11/15/23 09:50 Freq: Status: Active Protocol: Document 11/15/23 09:45 [facility] (Rec: 11/21/23 16:36 [facility] [id number]) Palpation Assessment Location descending colon Palpation Findings Soft Tissue Tightness,Muscle Guarding,Tenderness suprapubic fascia Palpation Findings Soft Tissue Tightness,Spasm, Muscle Guarding,Tenderness PT-OP-Q Treatments Start: 11/15/23 09:50 Freq: Status: Active Protocol: Document 11/22/23 09:45 [facility] (Rec: 11/22/23 12:48 [facility] [id number]) Therapeutic Exercises Supine Exercises diaphragmatic breathing Reps/Minutes 5 min work on 4 cound inhale and 6 count exhale Other Exercises seated adductor stretch Reps/Minutes hold 1-2 min Manual Therapy Treatment Soft Tissue Mobilization left adductor release Mobilization Type Myofascial Release Body Position Hooklying Comments left greater than right side adductor tightness ILU abdominal massage Intensity/Depth Moderate Body Position Hooklying visceral mobilizations of the bladder Mobilization Type Myofascial Release Body Position Hooklying MFR of the suprapubic fascia Body Position Hooklying PT-OP-T Assessment and Plan Start: 11/15/23 09:50 Freq: Status: Active Protocol: Document 11/22/23 09:45 [facility] (Rec: 11/28/23 16:25 [facility] [id number]) Physical Therapy Assessment Assessment Summary Assessment I worked on fascial release in the suprapubic fascia with Elana today as well as left sided adductor release and ILU massage over the colon. She is restricted in the fascial tissue surrounding the bladder . She tolerated MFR work well . Physical Therapy Plan Frequency and Duration Frequency of Treatment 1x/Week Duration of treatment (weeks) 12 Plan of Care Start Date 11/15/23 Plan of Care End Date 02/07/24 Therapeutic Interventions Therapeutic Interventions Home Exercise Program,Manual Therapy,Neuromuscular Re- education,Self-Care/Home Management,Soft Tissue Mobilization,Therapeutic Exercises Modalities Biofeedback Next Visit Focus/Plan Next Note Type Treatment Note Next Visit Plan continue with MFR work, trial of supine stretch over the ball next visit to assist with stretching the suprapubic fascia
--- NOTE | 2024-11-28 12:08 | PT.OPDS ---
Current Diagnoses Other specified disorders of muscle (11/22/23) Urgency of urination (11/22/23) Chronic bladder pain (11/22/23) Encounter for supervision of normal , unspecified, unspecified trimester (11/22/23) Visit Care Team Role Provider Type ROXANNE Neil Family Provider Non-Staff Primary Care Provider Specialty: Family Practice Address: [address] [facility], [address], [place], [address] Email: Jakub Schaffer MD Attending Provider Physician Referring Provider Specialty: [employer] Address: [address], [place], [address] Email: [email or web address] Visit Number Visit Number [id number] Discharge Summary PT-OP-B Current Condition Start: 11/15/23 09:50 Freq: Status: Active Protocol: Document 11/15/23 09:45 [facility] (Rec: 11/15/23 10:11 [facility] [id number]) Current Condition History of Current Condition Onset Date Aug 2022 Current Complaints frequent urination and urgency History of Current Condition pt notes she has a history of frequency of urination, 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 Since then she had a baby and she experienced urgency off and on with . She feels like she has to pee all the time. She did try bladder training so she is able to wait 3 hours between Worse at night and she wakes 3-4 times per night. She does retain a bit of urine 100 cc. Pt notes she is having more constipation and she notes her bladder will spasm right afterward. She has one every other day. She drinks plenty of water. no leakage issues. She does feel hemrhoids off and on. PT-OP-C Subjective Start: 11/15/23 09:50 Freq: Status: Active Protocol: Document 11/22/23 09:45 [facility] (Rec: 11/22/23 12:47 [facility] [id number]) OP-PT Subjective Patient Comments Patient Comments Elana notes no change in symptoms from after initial evaluation PT-OP-F Manual Assessment Start: 11/15/23 09:50 Freq: Status: Active Protocol: Document 11/15/23 09:45 [facility] (Rec: 11/15/23 11:56 [facility] [id number]) Manual Assessments Soft Tissue Assessment Soft Tissue Mobility Assessment suprapubic fascia is guarded and tight, tightness over the bladder , left side of the abdominal wall fascial tightness Left sided adductor guarding and tightness at the insertion to the pubic bone Other Manual Assessments Other Manual Assessments in supine the left leg is longer than the right leg, Elana notes she feels this is the way her legs have been since PT-OP-I Pelvic Floor Start: 11/21/23 11:54 Freq: Status: Active Protocol: Document 11/15/23 09:45 [facility] (Rec: 11/21/23 12:01 [facility] [id number]) Pelvic Floor Assessment Urine Pelvic Floor Surgery No Urinary Symptoms Urge Sensation Other Urinary Symptoms pt notes she feels as if her bladder is always full and that she always needs to void Other Leakage Causes no c/o leakage but exercises increases symptoms of urgency and bladder irritation Voiding Frequency pt uses urge technqiue and waits until apprx every 3 hours Nocturia 4 Pelvic Clock Pelvic Clock 3-6 Tenderness Pelvic Clock 6-9 Tenderness Pelvic Clock Other pt has tenderness along the lateral campos of the levator ani bilaterally, she is able to relax after contraction but there is tissue irritation and the external pelvic tissue does appear red and irritated Contraction Ability Voluntary Contraction Moderate Manual Muscle Testing Left 4 Manual Muscle Testing Right 4 Manual Muscle Testing Anterior 4 Manual Muscle Testing Posterior 4 PT-OP-J Posture/Palpation/Skin Start: 11/15/23 09:50 Freq: Status: Active Protocol: Document 11/15/23 09:45 [facility] (Rec: 11/21/23 16:36 [facility] [id number]) Palpation Assessment Location descending colon Palpation Findings Soft Tissue Tightness,Muscle Guarding,Tenderness suprapubic fascia Palpation Findings Soft Tissue Tightness,Spasm, Muscle Guarding,Tenderness PT-OP-T Assessment and Plan Start: 11/15/23 09:50 Freq: Status: Active Protocol: Document 11/28/24 12:07 [facility] (Rec: 11/28/24 12:08 [facility] [id number]) Physical Therapy Assessment Assessment Summary Assessment Elana has not been seen in our clinic in the last 12 months, she will be discharged from PT at this time Physical Therapy Plan Discharge Physical Therapy Discharge Reasons No Longer Attending PT
== END | disposition home or self-care (01) ==
LOC: PHYS 11-15 09:36
PROVIDERS: Family Provider Registered Nurse; PCP Registered Nurse; Referring Provider Obstetrics & Gynecology; Visit Provider Obstetrics & Gynecology
DX: Z34.90 Encounter for supervision of normal pregnancy, unspecified, unspecified trimester (principal); M62.89 Other specified disorders of muscle; R39.82 Chronic bladder pain; R39.15 Urgency of urination
CPT/HCPCS: 97110; 97140; 97162

== ENCOUNTER → 2025-01-20 09:58 | Outpatient (CLI) | payer BC, SELFPAY ==
[2025-01-20 10:44] LABS: Hematocrit 39.4 % (36-46); Hemoglobin 13.4 g/dL (12.0-16.0); Mean Corpuscular Hemoglobin 31.8 PG (26-34); Mean Corpuscular Volume 93.7 fL (80-100); Platelet Count 267 X10^3/uL (150-400); Red Blood Cell Count 4.21 X10^6/uL (4.0-5.2); Red Cell Distribution Width 12.7 % (11.6-14.8)
[2025-01-20 10:52] LABS: Hemoglobin A1C% w Est Avg Glu 4.9 % (4.0-6.0)
[2025-01-20 11:13] LABS: Alanine Aminotransferase 17 IU/L (<35); Albumin 4.9 g/dL (3.5-5.0); Albumin Globulin Ratio 1.6 (1.0-2.8); Alkaline Phosphatase 68 U/L (38-126); Aspartate Aminotransferase 22 IU/L (14-36); BUN Creatinine Ratio 14.8 (6-22); Bilirubin Total 0.7 mg/dL (0.2-1.3); Blood Urea Nitrogen 12 mg/dL (7-17); Calcium 9.9 mg/dL (8.4-10.2); Carbon Dioxide 24 mmol/L (22-32); Chloride 103 mmol/L (98-107); Cholesterol 289 mg/dL (140-199); Estimated Glomerular Filt Rate > 60 mL/min (>60); Globulin 3.1 g/dL (1.7-4.1); Glucose 95 mg/dL (70-100); HDL Cholesterol 101 mg/dL (40-60); HEMOLYSIS < 15 (0-50); LDL Cholesterol Calculated 157 mg/dL (<100); Potassium 4.6 mmol/L (3.4-5.1); Sodium 138 mmol/L (137-145); Triglycerides 157 mg/dL (35-150)
[2025-01-20 11:39] LABS: TSH w/ Reflex to FT4 0.68 uIU/mL (0.47-4.68)
== END ==
PROVIDERS: Family Provider Registered Nurse; PCP Registered Nurse Diabetes Educator; Referring Provider Registered Nurse Diabetes Educator; Visit Provider Registered Nurse Diabetes Educator
DX: Z01.419 Encounter for gynecological examination (general) (routine) without abnormal findings (principal); E78.5 Hyperlipidemia, unspecified; R35.0 Frequency of micturition
CPT/HCPCS: 36415; 80053; 80061; 83036; 84443; 85027